=== PATIENT | male | born 1990 | race Two or more races ===

== ENCOUNTER 2020-12-15 20:14 | Emergency (ER) | payer OTHER ==
[~2020-12-15] VITALS: Ht 175.3 cm; Wt 77.1 kg
== END 2020-12-16 00:15 | disposition home or self-care (01) ==
LOC: ER 20:14
DX: R05.9 Cough, unspecified (principal); Z03.818 Encounter for observation for suspected exposure to other biological agents ruled out; J45.998 Other asthma; F17.200 Nicotine dependence, unspecified, uncomplicated

== ENCOUNTER 2021-12-05 16:41 | Emergency (ER) | payer OTHER ==
[~2021-12-05] VITALS: Ht 175.3 cm; Wt 85.3 kg
[2021-12-05] MEDS ORDERED: FAMCICLOVIR500 MG PO (17:54)
[2021-12-05] MEDS ORDERED: DICLOFENAC SODI75 MG PO (17:54)
== END 2021-12-05 19:28 | disposition home or self-care (01) ==
LOC: ER 16:41
DX: R21 Rash and other nonspecific skin eruption (principal); B02.9 Zoster without complications